=== PATIENT | male | born 1945 | race Caucasian/White ===

== ENCOUNTER 2016-10-29 09:57 | Emergency (ER) | payer OTHER ==
--- NOTE | 2016-10-29 10:07 | EDPHY ---
H & P Time Seen by Provider: 10/29/16 10:07 - Personal History Tetanus Vaccine Date: <10YRS Constitutional: Initial Vital Signs Temperature (C) 36.9 C 10/29/16 10:06 Heart Rate 83 10/29/16 10:06 Respiratory Rate 18 10/29/16 10:06 Blood Pressure 141/100 H 10/29/16 10:06 O2 Sat (%) 96 10/29/16 10:06 O2 Delivery Mode Room Air Allergies/Adverse Reactions: morphine Allergy (Severe, Verified 11/15/11 17:49) Anaphylaxis oxycodone HCl [From Percocet] Allergy (Severe, Verified 10/29/16 10:01) Hives Penicillins Allergy (Severe, Verified 10/29/16 10:01) Hives acetaminophen [From Percocet] Allergy (Verified 11/15/11 17:36) Home Medications: Medication Instructions Recorded Atorvastatin Calcium [Lipitor 20 20 mg PO DAILY 11/15/11 mg (RX)] Lisinopril-Hctz 20-25 mg Tab DAILY 11/15/11 Omeprazole [Prilosec 10 mg] 0 mg PO DAILY 11/15/11 Aspirin 81mg (*) 10/29/16 Omeprazole 10/29/16 Medical Decision Making - Diagnostics Imaging Results: Imaging Impressions Chest X-Ray 10/29/16 10:26 Impression: Normal chest x-ray. Imaging: I viewed and interpreted images myself ED Course/Re-evaluation: CHIEF COMPLAINT: Chest pain HISTORY OF PRESENT ILLNESS: The patient is a 71 y/o male without cardiac disease history complaining of episodic central non-radiating chest pain for the last day. He describes his pain as "discomfort raising to pain" intermittently. Pain will subside completely for 3-5 minutes then return. At times, the pain feels sharp and "like I'm skipping a beat." He has associated weakness and shakiness. He denies nausea, vomiting, dyspnea, cough, or fever. Symptoms are not obviously aggravated by exertion and his symptoms began while he was sitting down watching TV. He notes over the past few months he's had a couple short-lived episodes of sharp chest pain that resolve spontaneously. He had a stress test 8-10 years ago. He has hypercholesteremia and takes a daily baby aspirin. He denies history of diabetes, hypertension, smoking, or cardiac disease in primary relatives. REVIEW OF SYSTEMS: A 10 point review of systems was performed and is negative with the exception of the elements mentioned in the history of present illness. PHYSICAL EXAM: HR, BP, O2 Sat, RR. Temp noted General Appearance: Alert, well hydrated, appropriate, and non-toxic appearing. Head: Atraumatic without scalp tenderness or obvious injury Eyes: Pupils equal, round, reactive to light and accommodation, EOMI, no trauma , no injection. Ears: Clear bilaterally, no perforation, normal landmarks Nose: Atraumatic, no rhinorrhea, clear. Throat: There is no erythema or exudates, no lesions, normal tonsils, mucus membranes moist. Neck: Supple, nontender, no lymphadenopathy. Respiratory: No retractions, no distress, no wheezes, and no accessory muscle use. Lungs are clear to auscultation bilaterally. Cardiovascular: Regular rate and rhythm, no murmurs, rubs, or gallops. Good capillary refill all extremities. Gastrointestinal: Abdomen is soft, nontender, non-distended, no masses, no rebound, no guarding, no peritoneal signs. Musculoskeletal: Normal active ROM of all extremities, atraumatic. Neurological: Alert, appropriate, and interactive. Nonfocal neuro Skin: No rashes, good turgor, no nodules on palpation. Past medical history: Colitis, hypercholesteremia Past surgical history: denies Family history: No heart disease in primary relatives Social history: , at bedside. Lives in [place]. Nonsmoker. PCP: Dr. Larkin ([facility]) Reviewed prior medical records including ED visit 11/15/11 for abdominal pain. DIAGNOSTICS/PROCEDURES/CRITICAL CARE TIME: The 12 lead EKG was interpreted by myself. Sinus rhythm rate 77. See hard copy and/or "tracemaster" electronic copy for interpretation. Chest x-ray: negative DIFFERENTIAL DIAGNOSIS: The differential diagnosis for the patient's chest pain included but was not limited to myocardial ischemia, pulmonary embolus, chest wall pain, pleural inflammation, and pulmonary infectious causes. MEDICAL DECISION MAKING: This is a 71 y/o male with minimal medical history who presents with episodic central chest pain for the last day. Symptoms are not exacerbation with exertion and non-radiating in quality. Limited cardiac risk factors include hypercholesteremia. His exam is unremarkable. Plan for standard chest pain work up including IV, labs, EKG, and chest x-ray. First Troponin is negative. It is sensitive for acute cardiac injury since he has had pain for over 24 hours at this time. He is a good candidate for a stress test. His EKG and chest x-ray are unremarkable. Plan for cardiology consult. 1135: Consulted with Dr. Terrazas, cardiology. He will stress test patient today upon his discharge from the ED. I discussed this with the patient. He is comfortable with this plan. - Data Points Laboratory Results: Laboratory Results 10/29/16 10:15 10/29/16 10:15 10/29/16 10/29/16 10/29/16 10:15 10:15 10:15 WBC 6.96 10^3/uL 10^3/uL (3.80-9.50) RBC 4.80 10^6/uL 10^6/uL (4.40-6.38) Hgb 15.0 g/dL g/dL (13.7-17.5) Hct 43.5 % % (40.0-51.0) MCV 90.6 fL fL (81.5-99.8) MCH 31.3 pg pg (27.9-34.1) MCHC 34.5 g/dL g/dL (32.4-36.7) RDW 12.7 % % (11.5-15.2) Plt Count 287 10^3/uL 10^3/uL (150-400) MPV 9.6 fL fL (8.7-11.7) Neut % (Auto) 49.7 % % (39.3-74.2) Lymph % (Auto) 36.6 % % (15.0-45.0) Waldo % (Auto) 9.6 % % (4.5-13.0) Eos % (Auto) 2.4 % % (0.6-7.6) Baso % (Auto) 1.3 % % (0.3-1.7) Nucleat RBC Rel Count 0.0 % % (0.0-0.2) Absolute Neuts (auto) 3.45 10^3/uL 10^3/uL (1.70-6.50) Absolute Lymphs (auto) 2.55 10^3/uL 10^3/uL (1.00-3.00) Absolute Monos (auto) 0.67 10^3/uL 10^3/uL (0.30-0.80) Absolute Eos (auto) 0.17 10^3/uL 10^3/uL (0.03-0.40) Absolute Basos (auto) 0.09 10^3/uL 10^3/uL (0.02-0.10) Absolute Nucleated RBC 0.00 10^3/uL 10^3/uL (0-0.01) Immature Gran % 0.4 % % (0.0-1.1) Immature Gran # 0.03 10^3/uL 10^3/uL (0.00-0.10) D-Dimer < 0.27 ug/mLFEU ug/mLFEU (0.00-0.50) Sodium 140 mEq/L mEq/L (134-144) Potassium 4.2 mEq/L mEq/L (3.5-5.2) Chloride 103 mEq/L mEq/L (97-110) Carbon Dioxide 29 mEq/l mEq/l (22-31) Anion Gap 8 mEq/L mEq/L (8-16) BUN 17 mg/dL mg/dL (7-23) Creatinine 1.0 mg/dL mg/dL (0.7-1.3) Estimated GFR > 60 Glucose 126 mg/dL H mg/dL (70-100) Calcium 9.9 mg/dL mg/dL (8.5-10.4) Troponin I < 0.012 ng/mL ng/mL (0-0.034) NT-Pro-B Natriuret Pep 20 pg/mL pg/mL (0-125) Medications Given: Discontinued Medications Aspirin (Aspirin) 324 mg PO EDNOW ONE Stop: 10/29/16 10:29 Last Admin: 10/29/16 10:29 Dose: 324 mg Departure - Departure Disposition: Home, Routine, Self-Care Clinical Impression: Chest pain Qualifiers: Chest pain type: other chest pain Qualified Code(s): R07.89 - Other chest pain Condition: Good Instructions: Chest Pain (ED) Additional Instructions: Go directly over to Dr. Terrazas's office for cardiac stress testing. Referrals: Remington Larkin MD [Primary Care Provider] - As per Instructions Sonny Terrazas MD [Medical Doctor] - As per Instructions Report Scribed for: Michoacano Petersen Report Scribed by: Johanna Abbott Date of Report: 10/29/16 Time of Report: 10:08
[2016-10-29 10:09] VITALS: RESP 18
--- NOTE | 2016-10-29 10:12 | CPEKG ---
Heart Rate: 77 RR Interval: 779 P-R Interval: 156 QRSD Interval: 78 QT Interval: 360 QTC Interval: 408 P Huxford: 58 QRS Huxford: 2 T Wave Huxford: 33 EKG Severity - NORMAL ECG - EKG Impression: SINUS RHYTHM Electronically Signed By: Michoacano Petersen 29-Oct-2016 13:55:08
[2016-10-29] MEDS ORDERED: ASPIRIN 81 MG CHEWABLE TAB ONE (10:21)
[2016-10-29] MEDS ORDERED: ASPIRIN 81 MG CHEWABLE TAB PO ONE (10:28)
[2016-10-29 10:41] LABS: % IMMATURE GRANULYOCYTES 0.4 % (0.0-1.1); ABSOLUTE IMMATURE GRANULOCYTES 0.03 10^3/uL (0.00-0.10); ADD DIFF? NO; ADD MORPH? NO; ADD SCAN? NO; ATYPICAL LYMPHOCYTE FLAG 0 (0-99); FRAGMENT RBC FLAG 0 (0-99); HEMATOCRIT 43.5 % (40.0-51.0); LEFT SHIFT FLG 0 (0-99); LIPEMIA HEMOLYSIS FLAG 90 (0-99); MEAN CELL HEMOGLOBIN 31.3 pg (27.9-34.1); MEAN CELL HEMOGLOBIN CONCENTR. 34.5 g/dL (32.4-36.7); MEAN CELL VOLUME 90.6 fL (81.5-99.8); MEAN PLATELET VOLUME 9.6 fL (8.7-11.7); PLATELET CLUMPS FLAG 0 (0-99); PLATELET COUNT 287 10^3/uL (150-400); RED CELL DISTRIBUTION WIDTH 12.7 % (11.5-15.2)
[2016-10-29 10:57] LABS: ANION GAP 8 mEq/L (8-16); CALCIUM 9.9 mg/dL (8.5-10.4); CARBON DIOXIDE 29 mEq/l (22-31); CHLORIDE 103 mEq/L (97-110); GLOMERULAR FILTRATION RATE > 60; GLUCOSE 126 mg/dL (70-100); POTASSIUM 4.2 mEq/L (3.5-5.2); SODIUM 140 mEq/L (134-144)
[2016-10-29 11:08] LABS: TROPONIN I < 0.012 ng/mL (0-0.034)
[2016-10-29 11:09] VITALS: O2SAT 94
[2016-10-29 11:53] VITALS: BP 137/87; PULSE 65; TEMP 98.2
== END 2016-10-29 11:53 | disposition home or self-care (01) ==
DX: R07.89 Other chest pain (principal); Z79.82 Long term (current) use of aspirin

== ENCOUNTER → 2018-05-16 | Outpatient (CLI) | payer OTHER | LOC: BMCIMAGING 09:08 | PROVIDERS: ATTEND Internal Medicine | DX: Z13.820 Encounter for screening for osteoporosis (principal); Z85.89 Personal history of malignant neoplasm of other organs and systems; R29.890 Loss of height ==

== ENCOUNTER → 2018-10-04 | Outpatient (CLI) | payer OTHER | LOC: BMCIMAGING 11:32 | PROVIDERS: ATTEND Internal Medicine | DX: M19.011 Primary osteoarthritis, right shoulder (principal); M19.012 Primary osteoarthritis, left shoulder ==